=== PATIENT | male | born 1975 | race Caucasian/White ===

== ENCOUNTER 2017-07-11 09:22 | Inpatient (IN) | payer OTHER ==
[2017-07-11 09:34] VITALS: BMI 22.1
--- NOTE | 2017-07-11 11:16 | HP ---
CIWA Score - CIWA Score Nausea/Vomitin-Mild Nausea/No Vomiting Muscle Tremors: 4-Moderate,w/Arms Extend Anxiety: 1-Mildly Anxious Agitation: 1-Slight > Activity Paroxysmal Sweats: 1-Minimal Palms Moist Orientation: 0-Oriented Tacttile Disturbances: 1-Very Mild Itch/Numbness Auditory Disturbances: 1-Very Mild Visual Disturbances: 1-Very Mild Sensitivity Headache: 2-Mild CIWA-Ar Total Score: 13 Admission ROS BHS - HPI Chief Complaint: I want to stop, I'm drinking too much Allergies/Adverse Reactions: Allergies Allergy/AdvReac Type Severity Reaction Status Date / Time Penicillins Allergy Mild Rash Verified 07/11/17 11:09 aspirin AdvReac Mild Rash Verified 07/11/17 11:09 History of Present Illness: 41 yo gentleman here for detox from alcohol, also using cocaine. No seizures. Previous detox in [place], first time here. Brought here from [facility] for intoxication. Exam Limitations: Clinical Condition - Ebola screening Have you traveled outside of the country in the last 21 days: No Have you had contact with anyone from an Ebola affected area: No Have you been sick,other than usual withdrawal symptoms: No Do you have a fever: No - Review of Systems Constitutional: Loss of Appetite, Changes in sleep, Weakness EENT: reports: No Symptoms Reported Respiratory: reports: No Symptoms reported Cardiac: reports: No Symptoms Reported GI: reports: Poor Appetite : reports: Frequency Musculoskeletal: reports: No Symptoms Reported Integumentary: reports: No Symptoms Reported Endocrine: reports: No Symptoms Reported Hematology: reports: No Symptoms Reported Psychiatric: reports: Judgement Intact, Mood/Affect Appropiate, Orientated x3, Anxious Other Systems: Reviewed and Negative Patient History - Patient Medical History Hx Asthma: Yes Hx Chronic Obstructive Pulmonary Disease (COPD): No Hx Cancer: No Hx Cardiac Disorders: No Hx Congestive Heart Failure: No Hx Hypertension: Yes Hx Hypercholesterolemia: No Hx Pacemaker: No HX Cerebrovascular Accident: No Hx Seizures: No Hx Dementia: No Hx Diabetes: No Hx Gastrointestinal Disorders: No Hx Liver Disease: No Hx Genitourinary Disorders: No Hx Sexually Transmitted Disorders: No Hx Renal Disease (ESRD): No Hx Thyroid Disease: No Hx Human Immunodeficiency Virus (HIV): No Hx Hepatitis C: No Hx Depression: Yes (states in [place] for anxiety given xanax) Hx Suicide Attempt: No Hx Bipolar Disorder: Yes (states in [place] given lamictal) - Patient Surgical History Past Surgical History: No - PPD History Previous Implant?: No PPD to be Administered?: Yes - Reproductive History Patient is a Female of Child Bearing Age (11 -55 yrs old): No (male) - Smoking Cessation Smoking history: Current every day smoker Have you smoked in the past 12 months: Yes Aproximately how many cigarettes per day: 15 Initiated information on smoking cessation: Yes 'Breaking Loose' booklet given: 07/11/17 - Substance & Tx. History Hx Alcohol Use: Yes Hx Substance Use: Yes Substance Use Type: Alcohol, Cocaine Hx Substance Use Treatment: Yes (detox) - Substances Abused Alcohol Route: Oral Frequency: Daily Amount used: seven 24 oz beer; 1 quart tequila Age of first use: 19 Date of Last Use: 07/10/17 Cocaine Route: Inhalation Frequency: Daily Amount used: 3 bags Age of first use: 20 Date of Last Use: 07/09/17 Family Disease History - Family Disease History Family Disease History: Heart Disease: Mother (living, in [place]), Respiratory: Son (one - age 18 - asthma), Other: Father ( - cocaine), Mother, Brother (5 living ), Sister (3 living (in [place])), Son, Daughter (one age 23 - asthma) Admission Physical Exam [facility] - Vital Signs Vital Signs: Vital Signs - 24 hr 07/11/17 09:25 Temperature 98.2 F Pulse Rate 76 Respiratory 18 Rate Blood Pressure 150/110 - Physical General Appearance: Yes: Nourished, Appropriately Dressed, Mild Distress, Anxious HEENTM: Yes: Hearing grossly Normal, Normocephalic, Normal Voice, Pharynx Normal Respiratory: Yes: Normal Breath Sounds, No Respiratory Distress Neck: Yes: No masses,lesions,Nodules, Supple Breast: Yes: Breast Exam Deferred Cardiology: Yes: Regular Rhythm, Regular Rate Abdominal: Yes: Soft Genitourinary: Yes: Frequency Back: Yes: Normal Inspection Musculoskeletal: Yes: full range of Motion, Gait Steady Extremities: Yes: Normal Inspection, Normal Range of Motion Neurological: Yes: Fully Oriented, Alert, Normal Mood/Affect, Normal Response Integumentary: Yes: Normal Color, Warm Lymphatic: Yes: Within Normal Limits - Diagnostic (1) Alcohol dependence with uncomplicated withdrawal Current Visit: Yes Status: Chronic (2) Asthma Current Visit: Yes Status: Chronic Qualifiers: Asthma severity: mild intermittent Asthma complication type: with acute exacerbation Qualified Code(s): J45.21 - Mild intermittent asthma with (acute) exacerbation (3) HTN (hypertension) Current Visit: Yes Status: Chronic Qualifiers: Hypertension type: essential hypertension Qualified Code(s): I10 - Essential (primary) hypertension (4) Nicotine dependence Current Visit: Yes Status: Acute Qualifiers: Nicotine product type: cigarettes Substance use status: uncomplicated Qualified Code(s): F17.210 - Nicotine dependence, cigarettes, uncomplicated Cleared for Admission BHS - Detox or Rehab S Level of Care: Medically Managed Detox Regimen/Protocol: Librium BHS Breath Alcohol Content Breath Alcohol Content: 0 Urine Pregancy Test - Result Urine Test Results: Negative- NO Line Present Urine Drug Screen - Results Drug Screen Negative: No Urine Drug Screen Results: FELIX-Cocaine
[2017-07-11] MEDS ORDERED: guaiFENesin/D-METHORPHAN HB 10 ML UNIT-DOSE CUPS PO PRN (11:32)
[2017-07-11] MEDS ORDERED: MAG HYDROX/AL HYDROX/SIMETH 30 ML UNIT-DOSE CUP PO PRN (11:32)
[2017-07-11] MEDS ORDERED: MAGNESIUM CITRATE 300 ML BOTTLE PO PRN (11:32)
[2017-07-11] MEDS ORDERED: ACETAMINOPHEN 325 MG TABLET (FP) PO PRN (11:32)
[2017-07-11] MEDS ORDERED: MAGNESIUM HYDROX 2400MG/30ML ORAL SUSPENSION 30 ML CUP PO PRN (11:32)
[2017-07-11] MEDS ORDERED: LOPERAMIDE HCL 2 MG CAPSULE PO PRN (11:32)
[2017-07-11] MEDS ORDERED: P-EPHED 60MG/TRIPROLIDI 2.5MG TABLET PO PRN (11:32)
[2017-07-11] MEDS ORDERED: hydrOXYzine PAMOATE 50 MG CAPSULE (FP) PO PRN (11:32)
[2017-07-11] MEDS ORDERED: chlordiazePOXIDE HCL 25 MG CAPSULE PO PRN (11:32)
[2017-07-11] MEDS ORDERED: MENTHOL/PHENOL 1 EACH UD MM PRN (11:32)
[2017-07-11] MEDS ORDERED: ALBUTEROL SO4 6.7 GM HFA INHALER IH PRN (11:34)
[2017-07-11] MEDS ORDERED: chlordiazePOXIDE HCL 25 MG CAPSULE PO ONE (12:15)
[2017-07-11] MEDS: ENALAPRIL MALEATE 10 MG TABLET (FP) PO SCH (12:28)
[2017-07-11] MEDS ORDERED: ALBUTEROL SO4 6.7 GM HFA INHALER IH ONE (16:23)
[2017-07-11] MEDS: chlordiazePOXIDE HCL 25 MG CAPSULE PO SCH ×2 (17:21→22:40)
--- NOTE | 2017-07-11 17:28 | CONSULT ---
[facility] Psychiatric Consult - Data Date of interview: 07/11/17 Admission source: [facility] Identifying data: First admission to [facility] for this 41 y/o [place] male seeking detox treatment on for alcohol and cocaine (crack) dependence.patient is single,a father of two,domiciled,unemployed and supported on welfare. Substance Abuse History: Confirmed by patient in this interview. Smoking Cessation. Smoking history: Current every day smoker. Have you smoked in the past 12 months: Yes. Aproximately how many cigarettes per day: 15. Initiated information on smoking cessation: Yes. 'Breaking Loose' booklet given: . - Substance & Tx. History. Hx Alcohol Use: Yes. Hx Substance Use: Yes. Substance Use Type: Alcohol, Cocaine. Hx Substance Use Treatment: Yes (detox). - Substances Abused. Alcohol. Route: Oral. Frequency: Daily. Amount used: seven 24 oz beer; 1 quart tequila. Age of first use: 19. Date of Last Use: 07/10/17. Cocaine. Route: Inhalation. Frequency: Daily. Amount used : 3 bags. Age of first use: 20. Date of Last Use: 07/09/17 Medical History: Lower back pain,migraine headaches,hyperytension and bronchial asthma. Psychiatric History: Diagnosed with Bipolar Disorder by a psychiatrist in [facility].Patient states that he used to be on lamictal and xanax.Never hospitalized in the [facility].No regular OPD care at this time.Off medications for several months.Mr Chin denies history of suicide attempts. Physical/Sexual Abuse/Trauma History: Patient denies. Additional Comment: Urine Drug Screen Results: FELIX-Cocaine.Noted. Mental Status Exam - Mental Status Exam Alert and Oriented to: Time, Place, Person Cognitive Function: Good Patient Appearance: Well Groomed Mood: Hopeful, Euthymic Affect: Appropriate, Normal Range Patient Behavior: Fatigued, Appropriate, Cooperative Speech Pattern: Clear, Appropriate (communicates fairly well in latvian) Voice Loudness: Normal Thought Process: Goal Oriented Thought Disorder: Not Present Hallucinations: Denies Suicidal Ideation: Denies Homicidal Ideation: Denies Insight/Judgement: Poor Sleep: Well Appetite: Good Muscle strength/Tone: Normal Gait/Station: Normal Psychiatric Findings - Problem List ([place] 1, 2,3) (1) Alcohol dependence with uncomplicated withdrawal Current Visit: Yes Status: Acute (2) Cocaine dependence Current Visit: Yes Status: Acute (3) Nicotine dependence Current Visit: Yes Status: Acute Qualifiers: Nicotine product type: cigarettes Substance use status: uncomplicated Qualified Code(s): F17.210 - Nicotine dependence, cigarettes, uncomplicated (4) Substance induced mood disorder Current Visit: Yes Status: Suspected (5) Asthma Current Visit: Yes Status: Chronic Qualifiers: Asthma severity: mild intermittent Asthma complication type: with acute exacerbation Qualified Code(s): J45.21 - Mild intermittent asthma with (acute) exacerbation (6) HTN (hypertension) Current Visit: Yes Status: Chronic Qualifiers: Hypertension type: essential hypertension Qualified Code(s): I10 - Essential (primary) hypertension - Initial Treatment Plan Initial Treatment Plan: Psychoeducation.Detoxification.Observation.
[2017-07-11 18:53] LABS: URINE APPEARANCE SLCLOUDY; URINE BILIRUBIN NEGATIVE (NEGATIVE); URINE BLOOD NEGATIVE (NEGATIVE); URINE GLUCOSE (UA) NEGATIVE (NEGATIVE); URINE KETONE NEGATIVE (NEGATIVE); URINE LEUK ESTERASE NEGATIVE (NEGATIVE); URINE NITRITE NEGATIVE (NEGATIVE); URINE UROBILINOGEN NEGATIVE mg/dL (0.2-1.0)
[2017-07-11 19:01] LABS: URINE COLOR YELLOW; URINE PROTEIN 1+ (NEGATIVE)
[2017-07-11 19:05] LABS: CALCIUM OXALATE CRYSTALS FEW /hpf (NONE SEEN); URINE MUCUS MANY; URINE RBC 2 /hpf (0-3); URINE WBC 3 /hpf (3-5)
[2017-07-11] MEDS: diphenhydrAMINE HCL 50 MG CAPSULE PO PRN (22:40)
[2017-07-11] MEDS: THIAMINE HCL 100 MG TABLET (FP) PO SCH (22:40)
[2017-07-12] MEDS: chlordiazePOXIDE HCL 25 MG CAPSULE PO SCH ×4 (05:37→22:19)
[2017-07-12 10:00] LABS: MCH 31.5 pg (25.7-33.7); MCHC 33.3 g/dl (32.0-35.9); MEAN CELL VOLUME 94.4 fl (80-96); MEAN PLT VOLUME 10.4 fl (7.5-11.1); PLATELET COUNT 158 K/MM3 (134-434); RDW 12.3 % (11.9-15.9); WHITE BLOOD COUNT 6.1 K/mm3 (4.0-10.0)
[2017-07-12 10:16] LABS: ALBUMIN 3.5 g/dl (3.4-5.0); ALK PHOS 69 U/L (45-117); ANION GAP 6 (8-16); BILIRUBIN,TOTAL 0.8 mg/dL (0.2-1.0); CALCIUM 8.9 mg/dL (8.5-10.1); CO2 29 mmol/L (21-32); CREATININE 1.3 mg/dL (0.7-1.3); GLUCOSE,RANDOM 77 mg/dL (74-106); SGOT/AST 11 U/L (15-37); SGPT/ALT 11 U/L (12-78); TOT PROT 6.5 g/dl (6.4-8.2)
[2017-07-12] MEDS: PRENATAL VITAMINS W/ FOLIC ACID TABLET (FP) PO SCH (10:29)
[2017-07-12] MEDS: ENALAPRIL MALEATE 10 MG TABLET (FP) PO SCH (10:30)
[2017-07-12] MEDS: NICOTINE POLACRILEX 4 MG GUM BUC PRN (12:26)
--- NOTE | 2017-07-12 16:15 | PN ---
S CIWA - CIWA Score Nausea/Vomitin Muscle Tremors: 4-Moderate,w/Arms Extend Anxiety: 4-Mod. Anxious/Guarded Agitation: 4-Moderately Restless Paroxysmal Sweats: 3 Orientation: 0-Oriented Tacttile Disturbances: 1-Very Mild Itch/Numbness Auditory Disturbances: 0-None Visual Disturbances: 0-None Headache: 1-Very Mild CIWA-Ar Total Score: 20 BHS Progress Note (SOAP) Subjective: Tremor, chills, stomach ache, nausea, interrupted sleep Objective: 07/12/17 16:13 Last Vital Signs Temp Pulse Resp BP Pulse Ox 97.8 F 84 18 139/95 07/12/17 13:09 07/12/17 13:09 07/12/17 13:09 07/12/17 13:09 Laboratory Tests 07/11/17 07/12/17 07/12/17 12:23 07:50 07:50 WBC 6.1 RBC 4.60 Hgb 14.5 Hct 43.5 MCV 94.4 MCH 31.5 MCHC 33.3 RDW 12.3 Plt Count 158 MPV 10.4 Sodium 143 Potassium 3.8 Chloride 108 H Carbon Dioxide 29 Anion Gap 6 L BUN 12 Creatinine 1.3 Creat Clearance w eGFR > 60 Random Glucose 77 Calcium 8.9 Total Bilirubin 0.8 AST 11 L ALT 11 L Alkaline Phosphatase 69 Total Protein 6.5 Albumin 3.5 Urine Color Yellow Urine Appearance Slcloudy Urine pH 5.0 Ur Specific [place] >= 1.030 H Urine Protein 1+ H Urine Glucose (UA) Negative Urine Ketones Negative Urine Blood Negative Urine Nitrite Negative Urine Bilirubin Negative Urine Urobilinogen Negative Ur Leukocyte Esterase Negative Urine RBC 2 Urine WBC 3 Ur Epithelial Cells Rare Calcium Oxalate Crystal Few Urine Mucus Many RPR Titer 07/12/17 07:50 WBC RBC Hgb Hct MCV MCH MCHC RDW Plt Count MPV Sodium Potassium Chloride Carbon Dioxide Anion Gap BUN Creatinine Creat Clearance w eGFR Random Glucose Calcium Total Bilirubin AST ALT Alkaline Phosphatase Total Protein Albumin Urine Color Urine Appearance Urine pH Ur Specific [place] Urine Protein Urine Glucose (UA) Urine Ketones Urine Blood Urine Nitrite Urine Bilirubin Urine Urobilinogen Ur Leukocyte Esterase Urine RBC Urine WBC Ur Epithelial Cells Calcium Oxalate Crystal Urine Mucus RPR Titer Nonreactive Labs noted: abnormal UA Assessment: 07/12/17 16:14 Withdrawal symptoms Noted with abnormal UA Plan: Continue detox Abnormal UA: encouraged to drink lots of water, repeat UA
--- NOTE | 2017-07-12 22:17 | EKG ---
Test Reason : Blood Pressure : / mmHG Vent. Rate : 073 BPM Atrial Rate : 073 BPM P-R Int : 138 ms QRS Dur : 086 ms QT Int : 398 ms P-R-T Axes : 061 018 028 degrees QTc Int : 438 ms NORMAL SINUS RHYTHM NORMAL ECG NO PREVIOUS ECGS AVAILABLE Confirmed by ALVAREZ HOPKINS MD ([id number]) on 07/12/2017 10:16:40 PM Referred By: Confirmed By:ALVAREZ HOPKINS MD
[2017-07-12] MEDS: ALBUTEROL SO4 6.7 GM HFA INHALER IH PRN (22:18)
[2017-07-12] MEDS: THIAMINE HCL 100 MG TABLET (FP) PO SCH (22:18)
[2017-07-12] MEDS: diphenhydrAMINE HCL 50 MG CAPSULE PO PRN (22:19)
[2017-07-13] MEDS: chlordiazePOXIDE HCL 25 MG CAPSULE PO SCH ×2 (05:24→10:17)
[2017-07-13 10:10] LABS: URINE APPEARANCE SLCLOUDY; URINE BILIRUBIN NEGATIVE (NEGATIVE); URINE BLOOD NEGATIVE (NEGATIVE); URINE COLOR LTYELLOW; URINE GLUCOSE (UA) NEGATIVE (NEGATIVE); URINE KETONE NEGATIVE (NEGATIVE); URINE LEUK ESTERASE NEGATIVE (NEGATIVE); URINE NITRITE NEGATIVE (NEGATIVE); URINE PROTEIN NEGATIVE (NEGATIVE); URINE UROBILINOGEN NEGATIVE mg/dL (0.2-1.0)
[2017-07-13] MEDS: ENALAPRIL MALEATE 10 MG TABLET (FP) PO SCH (10:17)
[2017-07-13] MEDS: PRENATAL VITAMINS W/ FOLIC ACID TABLET (FP) PO SCH (10:17)
[2017-07-13] MEDS: NICOTINE POLACRILEX 4 MG GUM BUC PRN ×2 (10:18→22:16)
--- NOTE | 2017-07-13 12:30 | PN ---
S CIWA - CIWA Score Nausea/Vomitin Muscle Tremors: 4-Moderate,w/Arms Extend Anxiety: 3 Agitation: 3 Paroxysmal Sweats: 1-Minimal Palms Moist Orientation: 2-Disoriented Date<2 days Tacttile Disturbances: 2-Mild Itch/Numbness/Burn Auditory Disturbances: 0-None Visual Disturbances: 0-None Headache: 3-Moderate CIWA-Ar Total Score: 20 BHS Progress Note (SOAP) Subjective: Tremors, H/A, Stomach Cramping. Objective: PT. A & O X 2 (DISORIENTED ABOUT DAY / DATE). NO ACUTE DISTRESS. 07/13/17 12:36 Vital Signs Temperature 97.2 F L 07/13/17 09:07 Pulse Rate 87 07/13/17 09:07 Respiratory Rate 18 07/13/17 09:07 Blood Pressure 137/97 07/13/17 09:07 O2 Sat by Pulse Oximetry (%) Laboratory Tests 07/11/17 07/12/17 07/12/17 12:23 07:50 07:50 WBC 6.1 RBC 4.60 Hgb 14.5 Hct 43.5 MCV 94.4 MCH 31.5 MCHC 33.3 RDW 12.3 Plt Count 158 MPV 10.4 Sodium 143 Potassium 3.8 Chloride 108 H Carbon Dioxide 29 Anion Gap 6 L BUN 12 Creatinine 1.3 Creat Clearance w eGFR > 60 Random Glucose 77 Calcium 8.9 Total Bilirubin 0.8 AST 11 L ALT 11 L Alkaline Phosphatase 69 Total Protein 6.5 Albumin 3.5 Urine Color Yellow Urine Appearance Slcloudy Urine pH 5.0 Ur Specific [place] >= 1.030 H Urine Protein 1+ H Urine Glucose (UA) Negative Urine Ketones Negative Urine Blood Negative Urine Nitrite Negative Urine Bilirubin Negative Urine Urobilinogen Negative Ur Leukocyte Esterase Negative Urine RBC 2 Urine WBC 3 Ur Epithelial Cells Rare Calcium Oxalate Crystal Few Urine Mucus Many RPR Titer 07/12/17 07/13/17 07:50 07:00 WBC RBC Hgb Hct MCV MCH MCHC RDW Plt Count MPV Sodium Potassium Chloride Carbon Dioxide Anion Gap BUN Creatinine Creat Clearance w eGFR Random Glucose Calcium Total Bilirubin AST ALT Alkaline Phosphatase Total Protein Albumin Urine Color Ltyellow Urine Appearance Slcloudy Urine pH 7.0 D Ur Specific [place] Urine Protein Negative Urine Glucose (UA) Negative Urine Ketones Negative Urine Blood Negative Urine Nitrite Negative Urine Bilirubin Negative Urine Urobilinogen Negative Ur Leukocyte Esterase Negative Urine RBC Urine WBC Ur Epithelial Cells Calcium Oxalate Crystal Urine Mucus RPR Titer Nonreactive LABS NOTED. RESULTS OF REPEAT UA NOTED. 07/13/17 12:37 Assessment: 07/13/17 12:37 WITHDRAWAL SYMPTOMS. Plan: CONTINUE DETOX.
[2017-07-13] MEDS: chlordiazePOXIDE 5 MG CAPSULE PO SCH ×2 (17:18→22:16)
[2017-07-13] MEDS: THIAMINE HCL 100 MG TABLET (FP) PO SCH (22:16)
[2017-07-13] MEDS: ALBUTEROL SO4 6.7 GM HFA INHALER IH PRN (22:16)
[2017-07-13] MEDS: diphenhydrAMINE HCL 50 MG CAPSULE PO PRN (22:17)
[2017-07-14] MEDS: chlordiazePOXIDE 5 MG CAPSULE PO SCH ×2 (05:44→10:26)
[2017-07-14] MEDS: NICOTINE POLACRILEX 4 MG GUM BUC PRN (06:44)
[2017-07-14] MEDS: PRENATAL VITAMINS W/ FOLIC ACID TABLET (FP) PO SCH (10:26)
[2017-07-14] MEDS: ENALAPRIL MALEATE 10 MG TABLET (FP) PO SCH (10:26)
--- NOTE | 2017-07-14 10:38 | PN ---
BHS Progress Note (SOAP) Subjective: nausea, sweats, interrupted sleep, anxiety, tremors Objective: 07/14/17 10:37 Vital Signs - 8 hr 07/14/17 07/14/17 07/14/17 03:24 06:32 09:22 Temperature 97.8 F 97.2 F L Pulse Rate 87 72 Respiratory 18 18 18 Rate Blood Pressure 135/88 139/98 Laboratory Tests 07/11/17 07/12/17 07/12/17 12:23 07:50 07:50 WBC 6.1 RBC 4.60 Hgb 14.5 Hct 43.5 MCV 94.4 MCH 31.5 MCHC 33.3 RDW 12.3 Plt Count 158 MPV 10.4 Sodium 143 Potassium 3.8 Chloride 108 H Carbon Dioxide 29 Anion Gap 6 L BUN 12 Creatinine 1.3 Creat Clearance w eGFR > 60 Random Glucose 77 Calcium 8.9 Total Bilirubin 0.8 AST 11 L ALT 11 L Alkaline Phosphatase 69 Total Protein 6.5 Albumin 3.5 Urine Color Yellow Urine Appearance Slcloudy Urine pH 5.0 Ur Specific [place] >= 1.030 H Urine Protein 1+ H Urine Glucose (UA) Negative Urine Ketones Negative Urine Blood Negative Urine Nitrite Negative Urine Bilirubin Negative Urine Urobilinogen Negative Ur Leukocyte Esterase Negative Urine RBC 2 Urine WBC 3 Ur Epithelial Cells Rare Calcium Oxalate Crystal Few Urine Mucus Many RPR Titer 07/12/17 07/13/17 07:50 07:00 WBC RBC Hgb Hct MCV MCH MCHC RDW Plt Count MPV Sodium Potassium Chloride Carbon Dioxide Anion Gap BUN Creatinine Creat Clearance w eGFR Random Glucose Calcium Total Bilirubin AST ALT Alkaline Phosphatase Total Protein Albumin Urine Color Ltyellow Urine Appearance Slcloudy Urine pH 7.0 D Ur Specific [place] 1.020 Urine Protein Negative Urine Glucose (UA) Negative Urine Ketones Negative Urine Blood Negative Urine Nitrite Negative Urine Bilirubin Negative Urine Urobilinogen Negative Ur Leukocyte Esterase Negative Urine RBC Urine WBC Ur Epithelial Cells Calcium Oxalate Crystal Urine Mucus RPR Titer Nonreactive Assessment: 07/14/17 10:38 withdrawal sx Plan: cont detox, fluids, encourage ambulation
[2017-07-14] MEDS: chlordiazePOXIDE HCL 10 MG CAPSULE PO SCH ×2 (17:08→22:21)
[2017-07-14] MEDS: THIAMINE HCL 100 MG TABLET (FP) PO SCH (22:21)
[2017-07-14] MEDS: diphenhydrAMINE HCL 50 MG CAPSULE PO PRN (22:22)
[2017-07-15] MEDS: chlordiazePOXIDE HCL 10 MG CAPSULE PO SCH ×2 (05:44→10:32)
[2017-07-15 09:53] VITALS: BP 139/94; PULSE 93; TEMP 98.1
[2017-07-15] MEDS: ENALAPRIL MALEATE 10 MG TABLET (FP) PO SCH (10:32)
[2017-07-15] MEDS: PRENATAL VITAMINS W/ FOLIC ACID TABLET (FP) PO SCH (10:32)
--- NOTE | 2017-07-15 19:03 | DS ---
[facility] Detox Discharge Summary Admission Date: 07/11/17 Discharge Date: 07/15/17 - History Present History: Alcohol Dependence, Cocaine Dependence Additional Comments: PATIENT GOING TO [facility]. PATIENT ADVISED TO FOLLOW-UP THERE FOR AFTERCARE PER DISCHARGE ARRANGEMENT. PATIENT WAS DISCHARGED FROM UNIT IN STABLE MEDICAL CONDITION. Pertinent Past History: Asthma, HTN, Depression, Bipolar Disorder. - Physical Exam Results Vital Signs: Vital Signs Temperature 98.1 F 07/15/17 09:53 Pulse Rate 93 H 07/15/17 09:53 Respiratory Rate 18 07/15/17 09:53 Blood Pressure 139/94 07/15/17 09:53 O2 Sat by Pulse Oximetry (%) Pertinent Admission Physical Exam Findings: WITHDRAWAL SYMPTOMS. Laboratory Tests 07/11/17 07/12/17 07/12/17 12:23 07:50 07:50 WBC 6.1 RBC 4.60 Hgb 14.5 Hct 43.5 MCV 94.4 MCH 31.5 MCHC 33.3 RDW 12.3 Plt Count 158 MPV 10.4 Sodium 143 Potassium 3.8 Chloride 108 H Carbon Dioxide 29 Anion Gap 6 L BUN 12 Creatinine 1.3 Creat Clearance w eGFR > 60 Random Glucose 77 Calcium 8.9 Total Bilirubin 0.8 AST 11 L ALT 11 L Alkaline Phosphatase 69 Total Protein 6.5 Albumin 3.5 Urine Color Yellow Urine Appearance Slcloudy Urine pH 5.0 Ur Specific [place] >= 1.030 H Urine Protein 1+ H Urine Glucose (UA) Negative Urine Ketones Negative Urine Blood Negative Urine Nitrite Negative Urine Bilirubin Negative Urine Urobilinogen Negative Ur Leukocyte Esterase Negative Urine RBC 2 Urine WBC 3 Ur Epithelial Cells Rare Calcium Oxalate Crystal Few Urine Mucus Many RPR Titer 07/12/17 07/13/17 07:50 07:00 WBC RBC Hgb Hct MCV MCH MCHC RDW Plt Count MPV Sodium Potassium Chloride Carbon Dioxide Anion Gap BUN Creatinine Creat Clearance w eGFR Random Glucose Calcium Total Bilirubin AST ALT Alkaline Phosphatase Total Protein Albumin Urine Color Ltyellow Urine Appearance Slcloudy Urine pH 7.0 D Ur Specific [place] 1.020 Urine Protein Negative Urine Glucose (UA) Negative Urine Ketones Negative Urine Blood Negative Urine Nitrite Negative Urine Bilirubin Negative Urine Urobilinogen Negative Ur Leukocyte Esterase Negative Urine RBC Urine WBC Ur Epithelial Cells Calcium Oxalate Crystal Urine Mucus RPR Titer Nonreactive LABS NOTED. - Treatment Hospital Course: Detox Protocol Followed, Detoxed Safely, Responded well, Discharged Condition Good, Rehab Referral Accepted Patient has Accepted a Rehab Referral to: [facility]. - Medication Discharge Medications: Ambulatory Orders Albuterol Sulfate Inhaler - [Ventolin Hfa Inhaler -] 2 inh PO Q4H PRN 07/11/17 Enalapril Maleate [Vasotec -] 10 mg PO DAILY 07/11/17 - Diagnosis (1) Asthma Status: Chronic Qualifiers: Asthma severity: mild intermittent Asthma complication type: with acute exacerbation Qualified Code(s): J45.21 - Mild intermittent asthma with (acute) exacerbation (2) Cocaine dependence Status: Chronic Qualifiers: Substance use status: uncomplicated Qualified Code(s): F14.20 - Cocaine dependence, uncomplicated (3) HTN (hypertension) Status: Chronic Qualifiers: Hypertension type: essential hypertension Qualified Code(s): I10 - Essential (primary) hypertension (4) Nicotine dependence Status: Chronic Qualifiers: Nicotine product type: cigarettes Substance use status: uncomplicated Qualified Code(s): F17.210 - Nicotine dependence, cigarettes, uncomplicated (5) Substance induced mood disorder Status: Suspected (6) Alcohol dependence with uncomplicated withdrawal Status: Acute - AMA Did Patient Leave Against Medical Advice: No
== END 2017-07-15 11:35 | disposition home or self-care (01) | DRG 774 ==
LOC: YASAS 09:22 → Y3N 11:50
PROVIDERS: ADMIT Internal Medicine Addiction Medicine; ATTEND Internal Medicine Addiction Medicine
PROC: HZ2ZZZZ Detoxification Services for Substance Abuse Treatment (ICD-10-PCS; principal; 2017-07-11)
DX: F10.230 Alcohol dependence with withdrawal, uncomplicated (principal); F14.20 Cocaine dependence, uncomplicated; F17.210 Nicotine dependence, cigarettes, uncomplicated; F19.24 Other psychoactive substance dependence with psychoactive substance-induced mood disorder; I10 Essential (primary) hypertension; J45.21 Mild intermittent asthma with (acute) exacerbation; R82.90 Unspecified abnormal findings in urine; Z88.0 Allergy status to penicillin; Z88.6 Allergy status to analgesic agent
CPT/HCPCS: 36415; 80053; 81003; 81015; 85027; 86593; 93005; 93010

== ENCOUNTER 2017-07-15 11:52 | Inpatient (IN) | payer OTHER ==
[2017-07-15] MEDS ORDERED: hydrOXYzine PAMOATE 50 MG CAPSULE (FP) PO PRN (14:19)
[2017-07-15] MEDS ORDERED: P-EPHED 60MG/TRIPROLIDI 2.5MG TABLET PO PRN (14:19)
[2017-07-15] MEDS ORDERED: MENTHOL/PHENOL 1 EACH UD MM PRN (14:19)
[2017-07-15] MEDS ORDERED: guaiFENesin/D-METHORPHAN HB 10 ML UNIT-DOSE CUPS PO PRN (14:19)
[2017-07-15] MEDS ORDERED: MAG HYDROX/AL HYDROX/SIMETH 30 ML UNIT-DOSE CUP PO PRN (14:19)
[2017-07-15] MEDS ORDERED: MAGNESIUM CITRATE 300 ML BOTTLE PO PRN (14:19)
[2017-07-15] MEDS ORDERED: ACETAMINOPHEN 325 MG TABLET (FP) PO PRN (14:19)
[2017-07-15] MEDS ORDERED: LOPERAMIDE HCL 2 MG CAPSULE PO PRN (14:19)
[2017-07-15] MEDS ORDERED: MAGNESIUM HYDROX 2400MG/30ML ORAL SUSPENSION 30 ML CUP PO PRN (14:19)
[2017-07-15] MEDS ORDERED: IBUPROFEN 400 MG TABLET (FP) PO PRN (14:19)
[2017-07-15] MEDS: NICOTINE 21 MG/24 HOURS TOPICAL PATCH TD SCH (15:05)
--- NOTE | 2017-07-15 15:57 | HP ---
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 Medical History: HTN,BA,Disk disease. Psychiatric History: Patient was dx with Bipoalr disorder about 5 years ago in [place] while in drug rehabilitation unit.patient was placed on Seroquel, Xanax and Lamictal.No psychiatric hospitalizatios,no suicidal attempts.Patient has no psychiatric follow up,obtaining psych medications from local ER.Patient is willing to restart Lamictal 25 mg po bid and Serqouel 100 mg po hs. Physical/Sexual Abuse/Trauma History: denies Vital Signs: Vital Signs - 24 hr 07/15/17 12:01 Temperature 98.4 F Pulse Rate 94 H Respiratory 18 Rate Blood Pressure 128/80 Allergies/Adverse Reactions: Allergies Allergy/AdvReac Type Severity Reaction Status Date / Time Penicillins Allergy Mild Rash Verified 07/15/17 13:26 aspirin AdvReac Mild Rash Verified 07/15/17 13:26 Date of last physical exam: 07/15/17 Concur with the findings of this exam: Yes - Substance Abuse/Tx History Hx Alcohol Use: Yes (reports drinking since 19 yo,1 quart of tequila,beer daily) Hx Substance Use: Yes (cocaine inhaling since 19 yo,3 bags daily) Substance Use Type: Alcohol, Cocaine Hx Substance Use Treatment: Yes (longest abstinence 5 years ) - Admission Criteria Previous failed treatment: Yes Poor recovery environment: Yes Comorbidities: Yes Lacks judgement: Yes Mental Status Exam - Mental Status Exam Alert and Oriented to: Time, Place, Person Cognitive Function: Grossly Intact Patient Appearance: Unkempt Mood: Sad, Anxious Affect: Mood Congruent, Labile Patient Behavior: Cooperative Speech Pattern: Clear Voice Loudness: Normal Thought Process: Goal Oriented Thought Disorder: Not Present Hallucinations: Denies Suicidal Ideation: Denies Homicidal Ideation: Denies Insight/Judgement: Fair Sleep: Difficulty falling asleep Appetite: Good Muscle strength/Tone: Normal Gait/Station: Normal Psychiatric Findings - Problem List ([place] 1, 2,3) (1) Cocaine dependence Current Visit: Yes Status: Chronic Qualifiers: Substance use status: uncomplicated Qualified Code(s): F14.20 - Cocaine dependence, uncomplicated (2) Nicotine dependence Current Visit: Yes Status: Chronic Qualifiers: Nicotine product type: cigarettes Substance use status: uncomplicated Qualified Code(s): F17.210 - Nicotine dependence, cigarettes, uncomplicated (3) Asthma Current Visit: Yes Status: Chronic Qualifiers: Asthma severity: mild intermittent Asthma complication type: with acute exacerbation Qualified Code(s): J45.21 - Mild intermittent asthma with (acute) exacerbation (4) HTN (hypertension) Current Visit: Yes Status: Chronic Qualifiers: Hypertension type: essential hypertension Qualified Code(s): I10 - Essential (primary) hypertension (5) Substance induced mood disorder Current Visit: Yes Status: Chronic (6) Alcohol dependence Current Visit: Yes Status: Chronic - Initial Treatment Plan Initial Treatment Plan: restart Lamictal 25 mg po bid,Serquel 100 mg po hs.Will monitor progress.
--- NOTE | 2017-07-15 16:19 | HP ---
[facility] Rehab Assess/Revision - Admission History Admitted to Rehab from: [facility] Date of Admission to Rehab: 07/15/17 - Vital signs Vital Signs: Vital Signs Period Temp Pulse Resp BP Sys/Diez Pulse Ox Last 24 Hr 98.4 F 94 18 128/80 - Findings Detox History & Physical reviewed: Yes Concur with findings: Yes Comments/Additional Findings: TRANSFERRED FROM DETOX TO REHAB ADMISSION PER PROTOCOL
[2017-07-15] MEDS: lamoTRIgine 25 MG TABLET PO SCH (21:18)
[2017-07-15] MEDS: THIAMINE HCL 100 MG TABLET (FP) PO SCH (21:18)
[2017-07-15] MEDS: QUEtiapine FUMARATE 100 MG TABLET (FP) PO SCH (21:18)
[2017-07-15] MEDS: ALBUTEROL SO4 6.7 GM HFA INHALER IH PRN (21:19)
[2017-07-16] MEDS: PRENATAL VITAMINS W/ FOLIC ACID TABLET (FP) PO SCH (10:18)
[2017-07-16] MEDS: NICOTINE 21 MG/24 HOURS TOPICAL PATCH TD SCH (10:18)
[2017-07-16] MEDS: lamoTRIgine 25 MG TABLET PO SCH ×2 (10:18→21:27)
[2017-07-16] MEDS: ENALAPRIL MALEATE 10 MG TABLET (FP) PO SCH (10:18)
[2017-07-16] MEDS: NICOTINE POLACRILEX 4 MG GUM BUC PRN (10:19)
[2017-07-16] MEDS: QUEtiapine FUMARATE 100 MG TABLET (FP) PO SCH (21:27)
[2017-07-16] MEDS: THIAMINE HCL 100 MG TABLET (FP) PO SCH (21:27)
[2017-07-16] MEDS: diphenhydrAMINE HCL 50 MG CAPSULE PO PRN (21:28)
[2017-07-17] MEDS: lamoTRIgine 25 MG TABLET PO SCH ×2 (10:10→21:24)
[2017-07-17] MEDS: NICOTINE 21 MG/24 HOURS TOPICAL PATCH TD SCH (10:10)
[2017-07-17] MEDS: ENALAPRIL MALEATE 10 MG TABLET (FP) PO SCH (10:10)
[2017-07-17] MEDS: PRENATAL VITAMINS W/ FOLIC ACID TABLET (FP) PO SCH (10:10)
[2017-07-17] MEDS: ALBUTEROL SO4 6.7 GM HFA INHALER IH PRN (19:35)
[2017-07-17] MEDS: QUEtiapine FUMARATE 100 MG TABLET (FP) PO SCH (21:24)
[2017-07-17] MEDS: diphenhydrAMINE HCL 50 MG CAPSULE PO PRN (21:24)
[2017-07-17] MEDS: THIAMINE HCL 100 MG TABLET (FP) PO SCH (21:24)
[2017-07-18] MEDS: PRENATAL VITAMINS W/ FOLIC ACID TABLET (FP) PO SCH (10:03)
[2017-07-18] MEDS: ENALAPRIL MALEATE 10 MG TABLET (FP) PO SCH (10:03)
[2017-07-18] MEDS: lamoTRIgine 25 MG TABLET PO SCH ×2 (10:03→21:25)
[2017-07-18] MEDS: NICOTINE 21 MG/24 HOURS TOPICAL PATCH TD SCH (10:04)
[2017-07-18] MEDS: THIAMINE HCL 100 MG TABLET (FP) PO SCH (21:25)
[2017-07-18] MEDS: diphenhydrAMINE HCL 50 MG CAPSULE PO PRN (21:25)
[2017-07-18] MEDS: QUEtiapine FUMARATE 100 MG TABLET (FP) PO SCH (21:25)
[2017-07-19] MEDS: PRENATAL VITAMINS W/ FOLIC ACID TABLET (FP) PO SCH (10:05)
[2017-07-19] MEDS: lamoTRIgine 25 MG TABLET PO SCH ×2 (10:05→21:20)
[2017-07-19] MEDS: ENALAPRIL MALEATE 10 MG TABLET (FP) PO SCH (10:05)
[2017-07-19] MEDS: NICOTINE 21 MG/24 HOURS TOPICAL PATCH TD SCH (10:06)
[2017-07-19] MEDS: NICOTINE POLACRILEX 4 MG GUM BUC PRN (14:41)
[2017-07-19] MEDS: QUEtiapine FUMARATE 100 MG TABLET (FP) PO SCH (21:20)
[2017-07-19] MEDS: THIAMINE HCL 100 MG TABLET (FP) PO SCH (21:20)
[2017-07-19] MEDS: diphenhydrAMINE HCL 50 MG CAPSULE PO PRN (21:20)
[2017-07-20] MEDS: PRENATAL VITAMINS W/ FOLIC ACID TABLET (FP) PO SCH (10:03)
[2017-07-20] MEDS: lamoTRIgine 25 MG TABLET PO SCH ×2 (10:04→21:31)
[2017-07-20] MEDS: NICOTINE 21 MG/24 HOURS TOPICAL PATCH TD SCH (10:05)
[2017-07-20] MEDS: ENALAPRIL MALEATE 10 MG TABLET (FP) PO SCH (10:05)
[2017-07-20] MEDS: THIAMINE HCL 100 MG TABLET (FP) PO SCH (21:31)
[2017-07-20] MEDS: diphenhydrAMINE HCL 50 MG CAPSULE PO PRN (21:31)
[2017-07-20] MEDS: QUEtiapine FUMARATE 100 MG TABLET (FP) PO SCH (21:31)
[2017-07-21] MEDS: PRENATAL VITAMINS W/ FOLIC ACID TABLET (FP) PO SCH (10:15)
[2017-07-21] MEDS: ENALAPRIL MALEATE 10 MG TABLET (FP) PO SCH (10:16)
[2017-07-21] MEDS: NICOTINE 21 MG/24 HOURS TOPICAL PATCH TD SCH (10:16)
[2017-07-21] MEDS: lamoTRIgine 25 MG TABLET PO SCH ×2 (10:16→21:27)
[2017-07-21] MEDS: NICOTINE POLACRILEX 4 MG GUM BUC PRN ×2 (10:17→21:29)
[2017-07-21] MEDS: THIAMINE HCL 100 MG TABLET (FP) PO SCH (21:27)
[2017-07-21] MEDS: QUEtiapine FUMARATE 100 MG TABLET (FP) PO SCH (21:27)
[2017-07-21] MEDS: diphenhydrAMINE HCL 50 MG CAPSULE PO PRN (21:27)
[2017-07-22] MEDS: PRENATAL VITAMINS W/ FOLIC ACID TABLET (FP) PO SCH (10:15)
[2017-07-22] MEDS: ENALAPRIL MALEATE 10 MG TABLET (FP) PO SCH (10:15)
[2017-07-22] MEDS: NICOTINE 21 MG/24 HOURS TOPICAL PATCH TD SCH (10:15)
[2017-07-22] MEDS: lamoTRIgine 25 MG TABLET PO SCH ×2 (10:15→21:28)
[2017-07-22] MEDS: NICOTINE POLACRILEX 4 MG GUM BUC PRN (10:16)
[2017-07-22] MEDS: diphenhydrAMINE HCL 50 MG CAPSULE PO PRN (21:28)
[2017-07-22] MEDS: QUEtiapine FUMARATE 100 MG TABLET (FP) PO SCH (21:28)
[2017-07-22] MEDS: THIAMINE HCL 100 MG TABLET (FP) PO SCH (21:28)
[2017-07-23] MEDS: PRENATAL VITAMINS W/ FOLIC ACID TABLET (FP) PO SCH (10:15)
[2017-07-23] MEDS: NICOTINE POLACRILEX 4 MG GUM BUC PRN ×2 (10:15→21:30)
[2017-07-23] MEDS: ENALAPRIL MALEATE 10 MG TABLET (FP) PO SCH (10:15)
[2017-07-23] MEDS: lamoTRIgine 25 MG TABLET PO SCH ×2 (10:15→21:29)
[2017-07-23] MEDS: NICOTINE 21 MG/24 HOURS TOPICAL PATCH TD SCH (10:15)
[2017-07-23] MEDS: diphenhydrAMINE HCL 50 MG CAPSULE PO PRN (21:29)
[2017-07-23] MEDS: QUEtiapine FUMARATE 100 MG TABLET (FP) PO SCH (21:29)
[2017-07-23] MEDS: THIAMINE HCL 100 MG TABLET (FP) PO SCH (21:29)
[2017-07-24] MEDS: ENALAPRIL MALEATE 10 MG TABLET (FP) PO SCH (10:01)
[2017-07-24] MEDS: NICOTINE 21 MG/24 HOURS TOPICAL PATCH TD SCH (10:01)
[2017-07-24] MEDS: lamoTRIgine 25 MG TABLET PO SCH ×2 (10:01→21:22)
[2017-07-24] MEDS: PRENATAL VITAMINS W/ FOLIC ACID TABLET (FP) PO SCH (10:01)
[2017-07-24] MEDS: NICOTINE POLACRILEX 4 MG GUM BUC PRN ×2 (10:01→21:22)
[2017-07-24] MEDS: diphenhydrAMINE HCL 50 MG CAPSULE PO PRN (21:22)
[2017-07-24] MEDS: QUEtiapine FUMARATE 100 MG TABLET (FP) PO SCH (21:22)
[2017-07-24] MEDS: THIAMINE HCL 100 MG TABLET (FP) PO SCH (21:22)
[2017-07-25] MEDS: lamoTRIgine 25 MG TABLET PO SCH ×2 (10:07→21:28)
[2017-07-25] MEDS: NICOTINE 21 MG/24 HOURS TOPICAL PATCH TD SCH (10:07)
[2017-07-25] MEDS: ENALAPRIL MALEATE 10 MG TABLET (FP) PO SCH (10:07)
[2017-07-25] MEDS: PRENATAL VITAMINS W/ FOLIC ACID TABLET (FP) PO SCH (10:07)
[2017-07-25] MEDS: THIAMINE HCL 100 MG TABLET (FP) PO SCH (21:28)
[2017-07-25] MEDS: QUEtiapine FUMARATE 100 MG TABLET (FP) PO SCH (21:28)
[2017-07-25] MEDS: diphenhydrAMINE HCL 50 MG CAPSULE PO PRN (21:29)
[2017-07-25] MEDS: NICOTINE POLACRILEX 4 MG GUM BUC PRN (21:29)
[2017-07-26] MEDS: ENALAPRIL MALEATE 10 MG TABLET (FP) PO SCH (09:58)
[2017-07-26] MEDS: NICOTINE 21 MG/24 HOURS TOPICAL PATCH TD SCH (09:58)
[2017-07-26] MEDS: PRENATAL VITAMINS W/ FOLIC ACID TABLET (FP) PO SCH (09:58)
[2017-07-26] MEDS: lamoTRIgine 25 MG TABLET PO SCH ×2 (09:58→21:29)
[2017-07-26] MEDS: NICOTINE POLACRILEX 4 MG GUM BUC PRN ×2 (09:59→21:30)
[2017-07-26] MEDS: QUEtiapine FUMARATE 100 MG TABLET (FP) PO SCH (21:29)
[2017-07-26] MEDS: THIAMINE HCL 100 MG TABLET (FP) PO SCH (21:29)
[2017-07-26] MEDS: diphenhydrAMINE HCL 50 MG CAPSULE PO PRN (21:30)
[2017-07-27] MEDS: PRENATAL VITAMINS W/ FOLIC ACID TABLET (FP) PO SCH (10:37)
[2017-07-27] MEDS: ENALAPRIL MALEATE 10 MG TABLET (FP) PO SCH (10:37)
[2017-07-27] MEDS: NICOTINE 21 MG/24 HOURS TOPICAL PATCH TD SCH (10:37)
[2017-07-27] MEDS: lamoTRIgine 25 MG TABLET PO SCH ×2 (10:37→21:34)
[2017-07-27] MEDS: NICOTINE POLACRILEX 4 MG GUM BUC PRN (10:40)
[2017-07-27] MEDS: THIAMINE HCL 100 MG TABLET (FP) PO SCH (21:34)
[2017-07-27] MEDS: QUEtiapine FUMARATE 100 MG TABLET (FP) PO SCH (21:34)
[2017-07-27] MEDS: diphenhydrAMINE HCL 50 MG CAPSULE PO PRN (21:34)
[2017-07-28] MEDS: PRENATAL VITAMINS W/ FOLIC ACID TABLET (FP) PO SCH (10:10)
[2017-07-28] MEDS: ENALAPRIL MALEATE 10 MG TABLET (FP) PO SCH (10:10)
[2017-07-28] MEDS: NICOTINE 21 MG/24 HOURS TOPICAL PATCH TD SCH (10:10)
[2017-07-28] MEDS: lamoTRIgine 25 MG TABLET PO SCH ×2 (10:10→21:28)
[2017-07-28] MEDS: NICOTINE POLACRILEX 4 MG GUM BUC PRN ×2 (10:12→21:30)
[2017-07-28] MEDS: THIAMINE HCL 100 MG TABLET (FP) PO SCH (21:29)
[2017-07-28] MEDS: QUEtiapine FUMARATE 100 MG TABLET (FP) PO SCH (21:29)
[2017-07-28] MEDS: diphenhydrAMINE HCL 50 MG CAPSULE PO PRN (21:29)
[2017-07-29 07:04] VITALS: TEMP 97.9
[2017-07-29] MEDS: NICOTINE 21 MG/24 HOURS TOPICAL PATCH TD SCH (09:51)
[2017-07-29] MEDS: ENALAPRIL MALEATE 10 MG TABLET (FP) PO SCH (09:51)
[2017-07-29] MEDS: lamoTRIgine 25 MG TABLET PO SCH (09:51)
[2017-07-29] MEDS: PRENATAL VITAMINS W/ FOLIC ACID TABLET (FP) PO SCH (09:51)
[2017-07-29] MEDS: NICOTINE POLACRILEX 4 MG GUM BUC PRN (09:52)
--- NOTE | 2017-07-29 09:52 | PN ---
Psychiatric Progress Note Vital Signs: Vital Signs Period Temp Pulse Resp BP Sys/Diez Pulse Ox Last 24 Hr 97.9 F 76-94 18-18 115-125/77-79 Date of Session: 07/29/17 Chief Complaint:: dischargev visit HPI: Patient addressed alcohol, cocaine, nicotine dependence comorbid substance induced mood disorder. ROS: HTN, Asthma medically managed. Current Medications: Active Medications Generic Name Dose Route Start Last Admin Trade Name Freq PRN Reason Stop Dose Admin Acetaminophen 650 mg 07/15/17 14:19 Tylenol - PO Q4H PRN FEVER OR PAIN Al Hydroxide/Mg Hydroxide 30 ml 07/15/17 14:19 Mylanta Oral Suspension - PO Q6H PRN DYSPEPSIA Albuterol Sulfate 2 puff 07/15/17 14:20 07/17/17 19:35 Ventolin Hfa Inhaler - IH 2 puff Q4H PRN Administration ASTHMA Diphenhydramine HCl 50 mg 07/15/17 14:19 07/28/17 21:29 Benadryl - PO 50 mg HSMR1 PRN Administration FOR ITCHING Enalapril Maleate 10 mg 07/16/17 10:00 07/28/17 10:10 Vasotec - PO 10 mg DAILY AWA Administration Eucalyptus/Menthol/Phenol/Sorbitol 1 each 07/15/17 14:19 Cepastat Lozenge - MM Q4H PRN SORE THROAT Guaifenesin 10 ml 07/15/17 14:19 Robitussin Dm - PO Q6H PRN COUGH Hydroxyzine Pamoate 50 mg 07/15/17 14:19 Vistaril - PO Q4H PRN AGITATION Ibuprofen 400 mg 07/15/17 14:19 Motrin - PO Q6H PRN PAIN Lamotrigine 25 mg 07/15/17 22:00 07/28/17 21:28 Lamictal - PO 25 mg BID AWA Administration Loperamide HCl 4 mg 07/15/17 14:19 Imodium - PO Q6H PRN DIARRHEA Magnesium Hydroxide 30 ml 07/15/17 14:19 Milk Of Magnesia - PO DAILY PRN CONSTIPATION Nicotine 21 mg 07/15/17 15:00 07/28/17 10:10 Nicoderm Patch - TD Not Given DAILY AWA Nicotine Polacrilex 4 mg 07/15/17 14:19 07/28/17 21:30 Nicorette Gum - BUC 4 mg Q2H PRN Administration NICOTINE REPLACEMENT RX Multivit/Folic Acid/Iron 1 tab 07/16/17 10:00 07/28/17 10:10 Vitamins (Sjr) - PO 1 tab DAILY AWA Administration Pseudoephedrine/Triprolidine 1 combo 07/15/17 14:19 Actifed - PO TID PRN NASAL CONGESTION Quetiapine Fumarate 100 mg 07/15/17 22:00 07/28/17 21:29 Seroquel - PO 100 mg HS AWA Administration Thiamine HCl 100 mg 07/15/17 22:00 07/28/17 21:29 Vitamin B1 - PO 100 mg HS AWA Administration Current Side Effect: No Lab tests ordered: No Lab tests reviewed: Yes Provider note:: Patient has completed today his treatment and met his goals, will continue to address his issues at [facility] outpatient treatment program in [facility] [place]. He gained insights into his problems and verbalized understanding the negative impact alcohol/drugs made on his life. He is motivated to continue maintain abstinence and be adherent to every aspects of his aftercare plnas. Lamictal and Seroquel well tolerated, no side-effets reported, scripts provided , patient is stable for discharge today. Total face to face time:: 35 Mental Status Exam - Mental Status Exam Alert and Oriented to: Time, Place, Person Cognitive Function: Good Patient Appearance: Well Groomed Mood: Hopeful Affect: Appropriate, Mood Congruent Patient Behavior: Appropriate, Cooperative Speech Pattern: Clear, Appropriate Voice Loudness: Normal Thought Process: Intact, Goal Oriented Thought Disorder: Not Present Hallucinations: Denies Suicidal Ideation: Denies Homicidal Ideation: Denies Insight/Judgement: Fair Sleep: Fair Appetite: Good Muscle strength/Tone: Normal Gait/Station: Normal Psychiatric Treatment Plan - Problem List (1) Alcohol dependence Current Visit: Yes (2) Asthma Current Visit: Yes Qualifiers: Asthma severity: mild intermittent Asthma complication type: with acute exacerbation Qualified Code(s): J45.21 - Mild intermittent asthma with (acute) exacerbation (3) Cocaine dependence Current Visit: Yes Qualifiers: Substance use status: uncomplicated Qualified Code(s): F14.20 - Cocaine dependence, uncomplicated (4) HTN (hypertension) Current Visit: Yes Qualifiers: Hypertension type: essential hypertension Qualified Code(s): I10 - Essential (primary) hypertension (5) Nicotine dependence Current Visit: Yes Qualifiers: Nicotine product type: cigarettes Substance use status: uncomplicated Qualified Code(s): F17.210 - Nicotine dependence, cigarettes, uncomplicated (6) Substance induced mood disorder Current Visit: Yes
[2017-07-29 11:51] VITALS: BP 144/92; PULSE 85
== END 2017-07-29 10:30 | disposition home or self-care (01) | DRG 772 ==
LOC: YASAS 11:52 → Y5N 11:53
PROVIDERS: ADMIT Psychiatry & Neurology Psychiatry; ATTEND Psychiatry & Neurology Psychiatry
PROC: HZ42ZZZ Group Counseling for Substance Abuse Treatment, Cognitive-Behavioral (ICD-10-PCS; principal; 2017-07-15)
DX: F10.20 Alcohol dependence, uncomplicated (principal); F14.20 Cocaine dependence, uncomplicated; F17.210 Nicotine dependence, cigarettes, uncomplicated; F19.24 Other psychoactive substance dependence with psychoactive substance-induced mood disorder; I10 Essential (primary) hypertension

== ENCOUNTER 2018-08-17 09:08 | Inpatient (IN) | payer OTHER ==
[2018-08-17 09:34] VITALS: BMI 22.1
--- NOTE | 2018-08-17 10:27 | HP ---
CIWA Score - CIWA Score Nausea/Vomitin-No Nausea/No Vomiting Muscle Tremors: None Anxiety: 0-No Anxiety, at Ease Agitation: 0-Normal Activity Paroxysmal Sweats: No Perspiration Orientation: 0-Oriented Tacttile Disturbances: 0-None Auditory Disturbances: 0-None Visual Disturbances: 0-None Headache: 0-None Present CIWA-Ar Total Score: 0 Admission ROS BHS - HPI Allergies/Adverse Reactions: Allergies Allergy/AdvReac Type Severity Reaction Status Date / Time Penicillins Allergy Mild Rash Verified 08/17/18 09:50 aspirin AdvReac Mild Rash Verified 08/17/18 09:50 History of Present Illness: pt here requesting detox from etoh use , reports 2 pints /day & 3 beers x 24 oz x 6 mo, prior to which he was sober x 4 mo. First age of use 21 . Previous admission at this facility : 1 yr ago . Patient reports occasional tremors if not drinking , denies blackouts, seizures, starts drinking around 7 pm , latest use 2-3 am . Denies symptoms at this time. BAc0.000 utox : milad reports cocaine 50 $ /day tobacco : 1 1/2 ppd /day . requesting nrt w/ gum pmhx : htn , asthma (childhood , hospitalized in childhood , did not bring inhaler - Proventil ) meds : Proventil, Vasotec 10 pshx ; denies psych : denies Exam Limitations: No Limitations - Ebola screening Have you traveled outside of the country in the last 21 days: No Have you had contact with anyone from an Ebola affected area: No Have you been sick,other than usual withdrawal symptoms: No Do you have a fever: No - Review of Systems Constitutional: See HPI EENT: reports: See HPI, Other (glasses) Respiratory: reports: No Symptoms reported, Other (asthma) Cardiac: reports: No Symptoms Reported GI: reports: No Symptoms Reported : reports: No Symptoms Reported Musculoskeletal: reports: No Symptoms Reported Integumentary: reports: No Symptoms Reported Neuro: reports: No Symptoms reported Endocrine: reports: No Symptoms Reported Psychiatric: reports: No Sypmtoms Reported, Mood/Affect Appropiate, Orientated x3 Patient History - Patient Medical History Hx Asthma: Yes (on albuterol inhaler) Hx Chronic Obstructive Pulmonary Disease (COPD): No Hx Cancer: No Hx Cardiac Disorders: No Hx Congestive Heart Failure: No Hx Hypertension: Yes (on meds) Hx Hypercholesterolemia: No Hx Pacemaker: No HX Cerebrovascular Accident: No Hx Seizures: No Hx Dementia: No Hx Diabetes: No Hx Gastrointestinal Disorders: No Hx Liver Disease: No Hx Genitourinary Disorders: No Hx Sexually Transmitted Disorders: No Hx Renal Disease (ESRD): No Hx Thyroid Disease: No Hx Human Immunodeficiency Virus (HIV): No Hx Hepatitis C: No Hx Depression: Yes Hx Suicide Attempt: No Hx Bipolar Disorder: Yes (states in [place] given lamictal) Hx Schizophrenia: No - Patient Surgical History Past Surgical History: No Hx Neurologic Surgery: No Hx Cataract Extraction: No Hx Cardiac Surgery: No Hx Lung Surgery: No Hx Breast Surgery: No Hx Breast Biopsy: No Hx Abdominal Surgery: No Hx Appendectomy: No Hx Cholecystectomy: No Hx Genitourinary Surgery: No Hx Section: No Hx Orthopedic Surgery: No Anesthesia Reaction: No - PPD History Previous Implant?: Yes Documented Results: Negative w/proof Implanted On Prior [facility] Admission?: Yes Date: 07/13/17 Results: NEGATIVE - Smoking Cessation Smoking history: Current every day smoker Have you smoked in the past 12 months: Yes Aproximately how many cigarettes per day: 30 Cigars Per Day: 0 Hx Chewing Tobacco Use: No Initiated information on smoking cessation: Yes 'Breaking Loose' booklet given: 08/17/18 - Substances Abused Alcohol Route: Oral Frequency: Daily Amount used: 2 PINTS OF VODKA, .3 CANS OF 24 OUNCES BEER Age of first use: 21 Date of Last Use: 08/16/18 Cocaine Route: Inhalation Frequency: Daily Amount used: $150 Age of first use: 21 Date of Last Use: 08/17/18 Family Disease History - Family Disease History Family Disease History: Heart Disease: Mother (living, in [place]), Respiratory: Son (one - age 18 - asthma), Other: Father ( - cocaine), Mother, Brother (5 living ), Sister (3 living (in [place])), Son, Daughter (one age 23 - asthma) Admission Physical Exam BHS - Vital Signs Vital Signs: Vital Signs - 24 hr 08/17/18 09:32 Temperature 97.6 F Pulse Rate 90 Respiratory 20 Rate Blood Pressure 143/104 H - Physical General Appearance: Yes: Within Normal Limits, No Apparent Distress, Nourished, Appropriately Dressed HEENTM: Yes: Within Normal Limits, EOMI, Hearing grossly Normal, Normal ENT Inspection, Normocephalic, Normal Voice, RIVKA, Pharynx Normal Respiratory: Yes: Within Normal Limits, Chest Non-Tender, Lungs Clear, Normal Breath Sounds Neck: Yes: Within Normal Limits, No masses,lesions,Nodules, Trachea in good position Breast: Yes: Breast Exam Deferred Cardiology: Yes: Within Normal Limits, Regular Rhythm, Regular Rate Abdominal: Yes: Within Normal Limits, Normal Bowel Sounds, Non Tender, Flat, Soft Genitourinary: Yes: Within Normal Limits Back: Yes: Within Normal Limits, Normal Inspection Musculoskeletal: Yes: Within Normal Limits, full range of Motion, Gait Steady, Pelvis Stable Extremities: Yes: Within Normal Limits, Normal Capillary Refill, Normal Inspection, Normal Range of Motion, Non-Tender Neurological: Yes: Within Normal Limits, Fully Oriented, Alert, Motor Strength 5 /5, Normal Mood/Affect, Normal Response Integumentary: Yes: Within Normal Limits, Normal Color, Dry, Warm - Diagnostic (1) Alcohol dependence Current Visit: No Status: Acute Qualifiers: Substance use status: uncomplicated Qualified Code(s): F10.20 - Alcohol dependence, uncomplicated (2) Asthma Current Visit: No Status: Chronic Qualifiers: Asthma severity: mild intermittent Asthma complication type: with acute exacerbation (3) Cocaine dependence Current Visit: No Status: Acute Qualifiers: Substance use status: uncomplicated Qualified Code(s): F14.20 - Cocaine dependence, uncomplicated (4) HTN (hypertension) Current Visit: No Status: Chronic Qualifiers: Hypertension type: essential hypertension Qualified Code(s): I10 - Essential (primary) hypertension (5) Nicotine dependence Current Visit: No Status: Acute Qualifiers: Nicotine product type: cigarettes Substance use status: uncomplicated Qualified Code(s): F17.210 - Nicotine dependence, cigarettes, uncomplicated BHS Breath Alcohol Content Breath Alcohol Content: 0 Urine Drug Screen - Results Drug Screen Negative: No Urine Drug Screen Results: MILAD-Cocaine
[2018-08-17] MEDS ORDERED: MAGNESIUM HYDROX 2400MG/30ML ORAL SUSPENSION 30 ML CUP PO PRN (10:35)
[2018-08-17] MEDS ORDERED: NICOTINE POLACRILEX 2 MG GUM BUC PRN (10:35)
[2018-08-17] MEDS ORDERED: hydrOXYzine PAMOATE 25 MG CAPSULE (FP) PO PRN (10:35)
[2018-08-17] MEDS ORDERED: ACETAMINOPHEN 325 MG TABLET (FP) PO PRN (10:35)
[2018-08-17] MEDS ORDERED: IBUPROFEN 400 MG TABLET (FP) PO PRN (10:35)
[2018-08-17] MEDS ORDERED: MAGNESIUM CITRATE 300 ML BOTTLE PO PRN (10:35)
[2018-08-17] MEDS ORDERED: MENTHOL/PHENOL 1 EACH UD MM PRN (10:35)
[2018-08-17] MEDS ORDERED: MAG HYDROX/AL HYDROX/SIMETH 30 ML UNIT-DOSE CUP PO PRN (10:35)
[2018-08-17] MEDS ORDERED: LOPERAMIDE HCL 2 MG CAPSULE PO PRN (10:35)
--- NOTE | 2018-08-17 13:48 | PN ---
[facility] Progress Note Note: NURSE JULIANA CALLED ABOUT NEW ADMISSION WITH ELEVATED BP. REPORTS DID NOT TAKE HIS MED TODAY. ON VASOTEC 10 MG PO DAILY. Vital Signs - 24 hr 08/17/18 08/17/18 09:32 13:33 Temperature 97.6 F 98.2 F Pulse Rate 90 83 Respiratory 20 18 Rate Blood Pressure 143/104 H 142/102 H PLAN: VASOTEC 10 MG PO NOW. MONITOR PT'S STATUS
[2018-08-17] MEDS: ENALAPRIL MALEATE 10 MG TABLET (FP) PO SCH (13:56)
[2018-08-17] MEDS ORDERED: TUBERCULIN PPD 5 TU/0.1ML VIAL ID ONE (13:57)
[2018-08-17 14:56] LABS: HEMATOCRIT 44.4 % (35.4-49); HEMOGLOBIN 15.1 GM/dL (11.7-16.9); MCHC 33.9 g/dl (32.0-35.9); MEAN CELL VOLUME 94.4 fl (80-96); MEAN PLT VOLUME 9.9 fl (7.5-11.1); PLATELET COUNT 179 K/MM3 (134-434); RDW 12.3 % (11.9-15.9); WHITE BLOOD COUNT 7.2 K/mm3 (4.0-10.0)
[2018-08-17 15:33] LABS: ALBUMIN 3.6 g/dl (3.4-5.0); ALK PHOS 107 U/L (45-117); ANION GAP 6 MMOL/L (8-16); BILIRUBIN,TOTAL 0.5 mg/dL (0.2-1); BLOOD UREA NITROGEN 14 mg/dL (7-18); CALCIUM 9.3 mg/dL (8.5-10.1); CHLORIDE 105 mmol/L (98-107); CO2 31 mmol/L (21-32); CREATININE 1.4 mg/dL (0.55-1.3); GLUCOSE,RANDOM 115 mg/dL (74-106); POTASSIUM 4.1 mmol/L (3.5-5.1); SGOT/AST 14 U/L (15-37); SGPT/ALT 13 U/L (13-61); SODIUM 142 mmol/L (136-145); TOT PROT 6.8 g/dl (6.4-8.2)
--- NOTE | 2018-08-17 16:04 | EKG ---
Test Reason : Blood Pressure : / mmHG Vent. Rate : 080 BPM Atrial Rate : 080 BPM P-R Int : 128 ms QRS Dur : 082 ms QT Int : 394 ms P-R-T Axes : 050 016 031 degrees QTc Int : 454 ms NORMAL SINUS RHYTHM NORMAL ECG WHEN COMPARED WITH ECG OF 11-JUL-2017 11:40, NO SIGNIFICANT CHANGE WAS FOUND Confirmed by Thanh Ceron MD ([id number]) on 08/17/2018 4:03:59 PM Referred By: Confirmed By:Thanh Ceron MD
--- NOTE | 2018-08-17 16:48 | PN ---
[facility] Progress Note Note: Psychiatric nurse practitioner note: Call received by RN requesting patient's medications. Chart reviewed. Patient is a new admission to . Spoke to patient briefly. He reports receiving lamictal 25mg BID + Seroquel 100mg qhs from his [facility]. He reports sub-optimal adherence to medication. Will order lamictal 25mg BID + seroquel 50mg qhs. Verbal consent given.
[2018-08-17 18:48] LABS: URINE APPEARANCE CLEAR; URINE BILIRUBIN NEGATIVE (<2.0 mg/dL); URINE COLOR YELLOW; URINE GLUCOSE (UA) NEGATIVE (NEGATIVE); URINE KETONE NEGATIVE (NEGATIVE); URINE LEUK ESTERASE NEGATIVE (NEGATIVE); URINE NITRITE NEGATIVE (NEGATIVE); URINE PROTEIN NEGATIVE (NEGATIVE)
[2018-08-17] MEDS: ALBUTEROL SO4 8 GM HFA INHALER IH PRN (21:13)
[2018-08-17] MEDS: THIAMINE HCL 100 MG TABLET (FP) PO SCH (21:13)
[2018-08-17] MEDS ORDERED: QUEtiapine FUMARATE 50 MG TABLET PO SCH (22:00)
[2018-08-17] MEDS ORDERED: lamoTRIgine 25 MG TABLET PO SCH (22:00)
[2018-08-17] MEDS ORDERED: MELATONIN 5 MG TABLETS PO PRN (22:00)
[2018-08-18] MEDS: ALBUTEROL SO4 8 GM HFA INHALER IH PRN ×3 (06:20→21:14)
--- NOTE | 2018-08-18 06:31 | HP ---
Psychiatrist Admission - Data Date of interview: 08/18/18 Admission source: Self-referred Identifying data: This is the second [facility] admission for this 42 years old male, father of 2 children, unemployed on public assistance, living with Medical History: Significant for bronchial asthma since childhood and hypertension. Smokes cigarettes 1.5 ppd Psychiatric History: Patient is not forthcoming and provides conflicting information. Initially reports that he was diagnosed with Bipolar Disorder in 2016 by a psychiatrist while at a group home in [place]. He said that he was then prescribed Seroquel 100 mg po HS, Lamictal 25 mg po daily ans Xanax 2 mg po BID. Claims that after he left the group home, he did not see a psychiatrist but he was buying medications in the street. told software writer that prior to this current admission, he last took medications during his admission on inpatient rehab in this facility in Jun 2017. Denies previous psychiatrist hospitalization or suicidal attempt. When confronted with information he provided during the admission in Jun 2017, he told software writer that his first psychiatric contact was in 2007 while in [place]. He was diagnosed with Bipolar Disorder and started on Lamictal 25 mg daily and Xanax 2 mg po BID. He said the Seroquel was added to his regimen by the psychiatrist at the group home in [place]. Again, he told software writer that he last took medications in Jun 2017 when he was admitted to inpatient rehab in this facility. KLARISSA Jose ordered Lamictal 25 mg po BID and Seroquel 50mg po HS for patient after he was called by nursing staff. At present, reports feeling depressed and sleeping poorly Physical/Sexual Abuse/Trauma History: Denies history of emotional, physical or sexual abuse as well as DV relationship. no service Additional Comment: Denies criminal history Vital Signs: Vital Signs - 24 hr 08/17/18 08/17/18 08/18/18 09:32 13:33 00:46 Temperature 97.6 F 98.2 F Pulse Rate 90 83 Respiratory 20 18 20 Rate Blood Pressure 143/104 H 142/102 H Allergies/Adverse Reactions: Allergies Allergy/AdvReac Type Severity Reaction Status Date / Time aspirin Allergy Mild Rash Verified 08/17/18 12:19 Penicillins Allergy Mild Rash Verified 08/17/18 09:50 Date of last physical exam: 08/17/18 Concur with the findings of this exam: Yes - Substance Abuse/Tx History Hx Alcohol Use: Yes Hx Substance Use: Yes Substance Use Type: Alcohol (Started drinking alcohol at age 21, consumes 2 pints of vodka & 3x 24ox of beer daily. Last drank on 08/16/18), Cocaine ( Started using cocaine at age 21, consumes $150 worth daily. Last used on 08/17/18 ) Hx Substance Use Treatment: Yes (one inpt detox & one inpt rehab admissions @ [facility]) Mental Status Exam - Mental Status Exam Alert and Oriented to: Time, Place, Person Cognitive Function: Fair Patient Appearance: Well Groomed Mood: Depressed Affect: Appropriate Speech Pattern: Clear Voice Loudness: Normal Thought Process: Intact Thought Disorder: Not Present Hallucinations: Denies Suicidal Ideation: Denies Homicidal Ideation: Denies Insight/Judgement: Fair Sleep: Poorly Appetite: Fair Muscle strength/Tone: Normal Gait/Station: Normal Psychiatric Findings - Problem List ([place] 1, 2,3) (1) Alcohol dependence Current Visit: No Status: Acute Qualifiers: Substance use status: uncomplicated Qualified Code(s): F10.20 - Alcohol dependence, uncomplicated (2) Cocaine dependence Current Visit: No Status: Acute Qualifiers: Substance use status: uncomplicated Qualified Code(s): F14.20 - Cocaine dependence, uncomplicated (3) Nicotine dependence Current Visit: No Status: Chronic Qualifiers: Nicotine product type: cigarettes Substance use status: uncomplicated Qualified Code(s): F17.210 - Nicotine dependence, cigarettes, uncomplicated (4) Substance induced mood disorder Current Visit: No Status: Chronic (5) Bipolar disorder Current Visit: Yes Status: Ruled-out (6) Asthma Current Visit: No Status: Chronic Qualifiers: Asthma severity: mild intermittent Asthma complication type: with acute exacerbation (7) HTN (hypertension) Current Visit: No Status: Chronic Qualifiers: Hypertension type: essential hypertension Qualified Code(s): I10 - Essential (primary) hypertension - Initial Treatment Plan Initial Treatment Plan: 1) Discontinue Lamictal and Seroquel as currently ordered by KLARISSA Jose. 2) Start 100 mg po HS. 3) Monitor progress
[2018-08-18] MEDS: ENALAPRIL MALEATE 10 MG TABLET (FP) PO SCH ×2 (10:04→14:32)
[2018-08-18] MEDS: PRENATAL VITAMINS W/ FOLIC ACID TABLET (FP) PO SCH (10:04)
[2018-08-18] MEDS ORDERED: cloNIDine HCL 0.1 MG TABLET PO ONE (14:50)
[2018-08-18] MEDS: THIAMINE HCL 100 MG TABLET (FP) PO SCH (21:13)
[2018-08-18] MEDS: QUEtiapine FUMARATE 100 MG TABLET (FP) PO SCH (21:15)
[2018-08-19] MEDS: ALBUTEROL SO4 8 GM HFA INHALER IH PRN ×2 (06:15→21:15)
[2018-08-19] MEDS: PRENATAL VITAMINS W/ FOLIC ACID TABLET (FP) PO SCH (09:45)
[2018-08-19] MEDS: ENALAPRIL MALEATE 10 MG TABLET (FP) PO SCH (09:46)
[2018-08-19] MEDS: THIAMINE HCL 100 MG TABLET (FP) PO SCH (21:14)
[2018-08-19] MEDS: QUEtiapine FUMARATE 100 MG TABLET (FP) PO SCH (21:14)
[2018-08-19] MEDS: guaiFENesin/D-METHORPHAN HB 10 ML UNIT-DOSE CUPS PO PRN (21:15)
[2018-08-20] MEDS: ALBUTEROL SO4 8 GM HFA INHALER IH PRN ×3 (06:30→21:18)
[2018-08-20] MEDS: ENALAPRIL MALEATE 10 MG TABLET (FP) PO SCH (09:58)
[2018-08-20] MEDS: PRENATAL VITAMINS W/ FOLIC ACID TABLET (FP) PO SCH (09:58)
[2018-08-20] MEDS: THIAMINE HCL 100 MG TABLET (FP) PO SCH (21:18)
[2018-08-20] MEDS: QUEtiapine FUMARATE 100 MG TABLET (FP) PO SCH (21:18)
[2018-08-20] MEDS: guaiFENesin/D-METHORPHAN HB 10 ML UNIT-DOSE CUPS PO PRN (21:19)
[2018-08-21] MEDS: ENALAPRIL MALEATE 10 MG TABLET (FP) PO SCH (09:47)
[2018-08-21] MEDS: PRENATAL VITAMINS W/ FOLIC ACID TABLET (FP) PO SCH (09:47)
[2018-08-21] MEDS: ALBUTEROL SO4 8 GM HFA INHALER IH PRN ×2 (09:48→21:17)
[2018-08-21] MEDS: THIAMINE HCL 100 MG TABLET (FP) PO SCH (21:16)
[2018-08-21] MEDS: QUEtiapine FUMARATE 100 MG TABLET (FP) PO SCH (21:16)
[2018-08-21] MEDS: guaiFENesin/D-METHORPHAN HB 10 ML UNIT-DOSE CUPS PO PRN (21:18)
[2018-08-22] MEDS: ALBUTEROL SO4 8 GM HFA INHALER IH PRN ×3 (06:18→21:13)
[2018-08-22] MEDS: ENALAPRIL MALEATE 10 MG TABLET (FP) PO SCH (09:39)
[2018-08-22] MEDS: PRENATAL VITAMINS W/ FOLIC ACID TABLET (FP) PO SCH (09:40)
[2018-08-22] MEDS: guaiFENesin/D-METHORPHAN HB 10 ML UNIT-DOSE CUPS PO PRN (09:41)
[2018-08-22] MEDS: QUEtiapine FUMARATE 100 MG TABLET (FP) PO SCH (21:12)
[2018-08-22] MEDS: THIAMINE HCL 100 MG TABLET (FP) PO SCH (21:13)
[2018-08-23] MEDS: ALBUTEROL SO4 8 GM HFA INHALER IH PRN ×3 (06:24→21:12)
[2018-08-23] MEDS: ENALAPRIL MALEATE 10 MG TABLET (FP) PO SCH (09:39)
[2018-08-23] MEDS: PRENATAL VITAMINS W/ FOLIC ACID TABLET (FP) PO SCH (09:39)
[2018-08-23] MEDS: THIAMINE HCL 100 MG TABLET (FP) PO SCH (21:11)
[2018-08-23] MEDS: QUEtiapine FUMARATE 100 MG TABLET (FP) PO SCH (21:11)
[2018-08-24] MEDS: ALBUTEROL SO4 8 GM HFA INHALER IH PRN ×2 (06:32→09:32)
[2018-08-24] MEDS: ENALAPRIL MALEATE 10 MG TABLET (FP) PO SCH (09:30)
[2018-08-24] MEDS: PRENATAL VITAMINS W/ FOLIC ACID TABLET (FP) PO SCH (09:30)
[2018-08-24] MEDS: P-EPHED 60MG/TRIPROLIDI 2.5MG TABLET PO PRN (14:30)
[2018-08-24] MEDS: QUEtiapine FUMARATE 100 MG TABLET (FP) PO SCH (21:22)
[2018-08-24] MEDS: THIAMINE HCL 100 MG TABLET (FP) PO SCH (21:22)
--- NOTE | 2018-08-25 09:52 | PN ---
[facility] Progress Note Note: PT REPORTS HE WAS EXPERIENCING LEFT EAR CONGESTION WITH DECREASED HEARING YESTERDAY MORNING ON AWAKENING. REPORTS IT HAS CLEARED THIS MORNING AFTER RECEIVING MEDICATION(ACTIFED). PT REPORTS A LITTLE SNIFFLE THIS MORNING. PT REPORTS HE CAN HEAR FROM LEFT EAR THIS MORNING. PT IS ALERT O X 3. NAD. Laboratory Tests 08/17/18 08/17/18 08/17/18 12:00 12:00 12:00 WBC 7.2 RBC 4.70 Hgb 15.1 Hct 44.4 MCV 94.4 MCH 32.0 MCHC 33.9 RDW 12.3 Plt Count 179 MPV 9.9 Sodium 142 Potassium 4.1 Chloride 105 Carbon Dioxide 31 Anion Gap 6 L BUN 14 Creatinine 1.4 H Creat Clearance w eGFR 55.58 Random Glucose 115 H Calcium 9.3 Total Bilirubin 0.5 AST 14 L ALT 13 Alkaline Phosphatase 107 Total Protein 6.8 Albumin 3.6 Urine Color Urine Appearance Urine pH Ur Specific [place] Urine Protein Urine Glucose (UA) Urine Ketones Urine Blood Urine Nitrite Urine Bilirubin Urine Urobilinogen Ur Leukocyte Esterase RPR Titer HIV 1&2 Antibody Screen Negative HIV P24 Antigen Negative 08/17/18 08/17/18 12:00 16:30 WBC RBC Hgb Hct MCV MCH MCHC RDW Plt Count MPV Sodium Potassium Chloride Carbon Dioxide Anion Gap BUN Creatinine Creat Clearance w eGFR Random Glucose Calcium Total Bilirubin AST ALT Alkaline Phosphatase Total Protein Albumin Urine Color Yellow Urine Appearance Clear Urine pH 6.0 Ur Specific [place] 1.018 Urine Protein Negative Urine Glucose (UA) Negative Urine Ketones Negative Urine Blood Negative Urine Nitrite Negative Urine Bilirubin Negative Urine Urobilinogen 2.0 Ur Leukocyte Esterase Negative RPR Titer Nonreactive HIV 1&2 Antibody Screen HIV P24 Antigen Vital Signs - 24 hr 08/24/18 08/25/18 08/25/18 10:00 00:30 03:30 Temperature Pulse Rate 90 Respiratory 18 18 Rate Blood Pressure 124/74 08/25/18 06:46 Temperature 98.1 F Pulse Rate 87 Respiratory 16 Rate Blood Pressure 115/71 EAR EXAM:BOTH TYMPANIC MEMBRANE NO REDNESS, BULGING OR PERFORATION. SMALL AMOUNT OF CERUMEN. NOSE: SLIGHTLY MOIST, MM NO REDNESS OR SWELLING. PLAN:ACTIFED PRN
[2018-08-25] MEDS: P-EPHED 60MG/TRIPROLIDI 2.5MG TABLET PO PRN ×2 (09:53→21:19)
[2018-08-25] MEDS: PRENATAL VITAMINS W/ FOLIC ACID TABLET (FP) PO SCH (09:53)
[2018-08-25] MEDS: ENALAPRIL MALEATE 10 MG TABLET (FP) PO SCH (09:53)
[2018-08-25] MEDS: ALBUTEROL SO4 8 GM HFA INHALER IH PRN ×3 (09:54→21:18)
[2018-08-25] MEDS: THIAMINE HCL 100 MG TABLET (FP) PO SCH (21:18)
[2018-08-25] MEDS: QUEtiapine FUMARATE 100 MG TABLET (FP) PO SCH (21:18)
[2018-08-26] MEDS: ALBUTEROL SO4 8 GM HFA INHALER IH PRN ×3 (06:45→21:12)
[2018-08-26] MEDS: PRENATAL VITAMINS W/ FOLIC ACID TABLET (FP) PO SCH (09:54)
[2018-08-26] MEDS: ENALAPRIL MALEATE 10 MG TABLET (FP) PO SCH (09:54)
[2018-08-26] MEDS: P-EPHED 60MG/TRIPROLIDI 2.5MG TABLET PO PRN ×2 (09:56→21:12)
[2018-08-26] MEDS: QUEtiapine FUMARATE 100 MG TABLET (FP) PO SCH (21:12)
[2018-08-26] MEDS: THIAMINE HCL 100 MG TABLET (FP) PO SCH (21:13)
[2018-08-27] MEDS: ALBUTEROL SO4 8 GM HFA INHALER IH PRN ×2 (06:02→18:21)
[2018-08-27] MEDS: ENALAPRIL MALEATE 10 MG TABLET (FP) PO SCH (09:42)
[2018-08-27] MEDS: PRENATAL VITAMINS W/ FOLIC ACID TABLET (FP) PO SCH (09:42)
[2018-08-27] MEDS: THIAMINE HCL 100 MG TABLET (FP) PO SCH (21:19)
[2018-08-27] MEDS: QUEtiapine FUMARATE 100 MG TABLET (FP) PO SCH (21:19)
[2018-08-27] MEDS: P-EPHED 60MG/TRIPROLIDI 2.5MG TABLET PO PRN (21:20)
[2018-08-28] MEDS: ALBUTEROL SO4 8 GM HFA INHALER IH PRN ×3 (06:00→21:14)
[2018-08-28] MEDS: PRENATAL VITAMINS W/ FOLIC ACID TABLET (FP) PO SCH (09:55)
[2018-08-28] MEDS: ENALAPRIL MALEATE 10 MG TABLET (FP) PO SCH (09:55)
[2018-08-28] MEDS: QUEtiapine FUMARATE 100 MG TABLET (FP) PO SCH (21:13)
[2018-08-28] MEDS: THIAMINE HCL 100 MG TABLET (FP) PO SCH (21:13)
[2018-08-29] MEDS: ALBUTEROL SO4 8 GM HFA INHALER IH PRN ×3 (04:46→18:43)
[2018-08-29] MEDS: PRENATAL VITAMINS W/ FOLIC ACID TABLET (FP) PO SCH (10:12)
[2018-08-29] MEDS: ENALAPRIL MALEATE 10 MG TABLET (FP) PO SCH (10:12)
[2018-08-29] MEDS: QUEtiapine FUMARATE 100 MG TABLET (FP) PO SCH (21:05)
[2018-08-29] MEDS: THIAMINE HCL 100 MG TABLET (FP) PO SCH (21:05)
[2018-08-30] MEDS: ALBUTEROL SO4 8 GM HFA INHALER IH PRN (01:29)
[2018-08-30 07:11] VITALS: BP 106/76; PULSE 78; TEMP 98.4
--- NOTE | 2018-08-30 10:14 | PN ---
Psychiatric Progress Note Vital Signs: Vital Signs Period Temp Pulse Resp BP Sys/Diez Pulse Ox Last 24 Hr 98.4 F 78 18-18 106/76 Date of Session: 08/30/18 Chief Complaint:: Discharge Note HPI: Patient addressing Alcohol and Cocaine Dependence comorbid with Nicotine Dependence , Bipolar Disorder and Substance-Induced Mood Disorder ROS: Asthma, HTN were medically managed Current Medications: Active Medications Generic Name Dose Route Start Last Admin Trade Name Freq PRN Reason Stop Dose Admin Acetaminophen 650 mg 08/17/18 10:35 08/30/18 01:27 Tylenol - PO 650 mg Q4H PRN Administration FEVER Al Hydroxide/Mg Hydroxide 30 ml 08/17/18 10:35 Mylanta Oral Suspension - PO Q6H PRN DYSPEPSIA Albuterol Sulfate 2 puff 08/17/18 10:36 08/30/18 01:29 Ventolin Hfa Inhaler - IH 2 puff Q4H PRN Administration WHEEZING Enalapril Maleate 10 mg 08/18/18 10:00 08/29/18 10:12 Vasotec - PO 10 mg DAILY AWA Administration Eucalyptus/Menthol/Phenol/Sorbitol 1 each 08/17/18 10:35 Cepastat Lozenge - MM Q4H PRN SORE THROAT Guaifenesin 10 ml 08/17/18 10:35 08/22/18 09:41 Robitussin Dm - PO 10 ml Q6H PRN Administration COUGH Hydroxyzine Pamoate 25 mg 08/17/18 10:35 Vistaril - PO Q4H PRN AGITATION Loperamide HCl 4 mg 08/17/18 10:35 Imodium - PO Q6H PRN DIARRHEA Magnesium Citrate 300 ml 08/17/18 10:35 Citroma - PO Q48H PRN CONSTIPATION Magnesium Hydroxide 30 ml 08/17/18 10:35 Milk Of Magnesia - PO DAILY PRN CONSTIPATION Melatonin 5 mg 08/17/18 22:00 08/17/18 21:13 Melatonin PO 5 mg HS PRN Administration INSOMNIA Nicotine Polacrilex 2 mg 08/17/18 10:35 Nicorette Gum - BUC Q2H PRN NICOTINE REPLACEMENT RX Multivit/Folic Acid/Iron 1 tab 08/18/18 10:00 08/29/18 10:12 Vitamins (Sjr) - PO 1 tab DAILY AWA Administration Pseudoephedrine/Triprolidine 1 combo 08/17/18 10:35 08/27/18 21:20 Actifed - PO 1 combo TID PRN Administration NASAL CONGESTION Quetiapine Fumarate 100 mg 08/18/18 22:00 08/29/18 21:05 Seroquel - PO 100 mg HS AWA Administration Thiamine HCl 100 mg 08/17/18 22:00 08/29/18 21:05 Vitamin B1 - PO 100 mg HS AWA Administration Current Side Effect: No Lab tests ordered: Yes Lab tests reviewed: Yes Provider note:: Patient has completed this program today. He has met his treatment goals and will continue to address his issues in outpatient treatment at [facility]. Told insurance underwriter sales that from his participation in this program, he has learned to identify his triggers and the importance of surrounding himself with a sober support network in order to maintain abstinence. He responded well to Seroquel 100 mg po HS. Script for 30 days supply of that medication is electronically transmitted to [facility] at [address] [place] [address]. He is stable for discharge today Total face to face time:: 35 Mental Status Exam - Mental Status Exam Alert and Oriented to: Time, Place, Person Cognitive Function: Fair Patient Appearance: Well Groomed Mood: Hopeful, Euthymic Affect: Appropriate Patient Behavior: Cooperative Speech Pattern: Clear Voice Loudness: Normal Thought Process: Intact Thought Disorder: Not Present Hallucinations: Denies Suicidal Ideation: Denies Homicidal Ideation: Denies Insight/Judgement: Fair Sleep: Fair Appetite: Good Muscle strength/Tone: Normal Gait/Station: Normal Psychiatric Treatment Plan - Problem List (1) Alcohol dependence Current Visit: No Qualifiers: Substance use status: uncomplicated Qualified Code(s): F10.20 - Alcohol dependence, uncomplicated (2) Cocaine dependence Current Visit: No Qualifiers: Substance use status: uncomplicated Qualified Code(s): F14.20 - Cocaine dependence, uncomplicated (3) Nicotine dependence Current Visit: No Qualifiers: Nicotine product type: cigarettes Substance use status: uncomplicated Qualified Code(s): F17.210 - Nicotine dependence, cigarettes, uncomplicated (4) Substance induced mood disorder Current Visit: No (5) Bipolar disorder Current Visit: Yes (6) Asthma Current Visit: No Qualifiers: Asthma severity: mild intermittent Asthma complication type: with acute exacerbation (7) HTN (hypertension) Current Visit: No Qualifiers: Hypertension type: essential hypertension Qualified Code(s): I10 - Essential (primary) hypertension Initial treatment plan: Patient is discharged today and referred to [facility] for outpatient treatment
[2018-08-30] MEDS: PRENATAL VITAMINS W/ FOLIC ACID TABLET (FP) PO SCH (10:19)
[2018-08-30] MEDS: ENALAPRIL MALEATE 10 MG TABLET (FP) PO SCH (10:19)
== END 2018-08-30 11:20 | disposition home or self-care (01) | DRG 772 ==
LOC: YASAS 09:08 → Y5N 11:32
PROVIDERS: ADMIT Psychiatry & Neurology Psychiatry; ATTEND Psychiatry & Neurology Psychiatry
PROC: HZ42ZZZ Group Counseling for Substance Abuse Treatment, Cognitive-Behavioral (ICD-10-PCS; principal; 2018-08-17)
DX: F10.20 Alcohol dependence, uncomplicated (principal); F14.20 Cocaine dependence, uncomplicated; F17.210 Nicotine dependence, cigarettes, uncomplicated; F19.24 Other psychoactive substance dependence with psychoactive substance-induced mood disorder; F31.9 Bipolar disorder, unspecified; I10 Essential (primary) hypertension; J45.21 Mild intermittent asthma with (acute) exacerbation; J34.89 Other specified disorders of nose and nasal sinuses; Z88.0 Allergy status to penicillin; Z88.6 Allergy status to analgesic agent
CPT/HCPCS: 36415; 80053; 81003; 85027; 86593; 87389; 93005; 93010; J0735